=== PATIENT | male | born 1945 | race Caucasian/White ===

== ENCOUNTER 2020-05-21 12:37 | Outpatient (CLI) | payer MEDICARE, OTHER, SELFPAY ==
--- NOTE | ~2020-05-21 | US_ITS ---
EXAMINATION: US carotid duplex BI DATE: 05/21/2020 13:37 INDICATION: Dizziness. Hypercholesterolemia. TECHNIQUE: Grayscale, color Doppler, and pulsed Doppler images of the cervical carotid arteries were obtained. The degree of vessel stenosis is placed in one of the following categories: normal, <50%, 5 0-69%, >=70% but less than near-occlusion, near-occlusion, or total occlusion. Note that percent sten osis relative to normal distal artery lumen diameter is indirectly measured from velocity measurement s as described by Dallas, et al. Radiology 2003; [id number]. COMPARISON: None. FINDINGS: RIGHT: The right common carotid artery (CCA) peak systolic velocity (PSV) is 80.7 cm/s. The right internal c arotid artery (ICA) PSV is 87.9 cm/s. The right ICA end-diastolic velocity (EDV) is 24.5 cm/s. [facility]/CCA PSV ratio is 1.1. Grayscale and color Doppler images yield an estimate of less than 50% d iameter reduction from plaque in the ICA. The external carotid artery (ECA) PSV is 108.1 cm/s. There is antegrade flow in the right vertebral artery. LEFT: The left CCA PSV is 129.9 cm/s. The left ICA PSV is 114.5 cm/s. The left ICA EDV is 14.4 cm/s. The le ft ICA/CCA PSV ratio is 0.9. Grayscale and color Doppler images yield an estimate of less than 50% di ameter reduction from plaque in the ICA. The ECA PSV is 114.5 cm/s. There is antegrade flow in the le ft vertebral artery. IMPRESSION: 1. Less than 50% stenosis in the right internal carotid artery. 2. Less than 50% stenosis in the left internal carotid artery. Reviewed, dictated and finalized at [facility]. Reviewed, dictated and finalized at [facility].
== END 2020-05-21 12:38 | disposition home or self-care (01) ==
LOC: ANHIMG 12:47
PROVIDERS: PCP Family Medicine; Visit Provider Family Medicine
DX: R42 Dizziness and giddiness (principal); E78.00 Pure hypercholesterolemia, unspecified; I65.23 Occlusion and stenosis of bilateral carotid arteries
CPT/HCPCS: 93880

== ENCOUNTER 2021-12-30 12:26 | Emergency (ER) | payer MEDICARE, SELFPAY ==
--- NOTE | ~2021-12-30 | XR_ITS ---
EXAMINATION: XR chest 1V portable 12/30/2021 12:56 INDICATION: Dizziness. Hypertension. PROCEDURE: AP portable chest COMPARISON: 05/10/2018 FINDINGS: The lungs are clear. The cardiomediastinal silhouette is within normal limits. There are no pleural effusions. There is no pneumothorax suspected. IMPRESSION: 1: NO ACUTE CARDIOPULMONARY DISEASE. Reviewed, dictated and finalized at [facility].
--- NOTE | ~2021-12-30 | CT_ITS ---
EXAMINATION: CT brain wo con DATE: 12/30/2021 13:43 INDICATION: Left lower limb numbness. Abnormal gait. TECHNIQUE: Computed tomography (CT) of the head was performed without intravenous contrast. Sagittal and coronal reconstructions were performed. The mA was adjusted according to patient size. Iterative reconstruction technique was employed. The dose-length product was 681.00 mGy-cm. COMPARISON: None FINDINGS: No acute intracranial hemorrhage, acute infarction or abnormal extra axial fluid collection. Symmetri c increased prominence of the subarachnoid spaces overlying the convexities consistent with mild age- appropriate diffuse cerebral volume loss. Ventricles are normal and symmetric. No mass/mass effect. T he orbits, paranasal sinuses and mastoid air cells are normal. 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 IMPRESSION: 1. No acute intracranial process. Reviewed, dictated and finalized at location [facility].
[2021-12-30 12:32] VITALS: BP 172/92; PULSE 68; RESP 16; TEMP 36.2; O2SAT 98
--- NOTE | 2021-12-30 12:36 | ECG_ITS ---
Measurements Intervals [place] Rate: 63 P: 13 MO: 152 QRS: -1 QRSD: 109 T: 15 QT: 417 QTc: 428 Interpretive Statements SINUS RHYTHM POSSIBLE LEFT VENTRICULAR HYPERTROPHY [VOLTAGE CRITERIA PLUS LAE OR QRS WIDENING] OTHERWISE NORMAL TRACING NO PREVIOUS ECG AVAILABLE FOR COMPARISON Electronically Signed On 12-30-2021 16:16:11 CDT by Luc Cleveland M.D.
[2021-12-30 12:51] LABS: Basophils Percent Auto 0.1 % (0.2-1.2); Eosinophils Absolute Auto 0.1 K/mm3 (0-0.3); Eosinophils Percent Auto 1.4 % (0-4.4); Hematocrit 42.1 % (42.0-52.0); Hemoglobin 14.4 g/dL (14.0-18.0); Immature Granulocyte Absolute 0.01 K/mm3 (0.00-0.031); Immature Granulocyte Percent A 0.1 % (0-0.5); Lymphocytes Absolute Auto 1.58 K/mm3 (0.9-3.2); Lymphocytes Percent Auto 22.8 % (18.3-44.2); Mean Corpuscular HGB Conc 34.2 g/dl (32-36); Mean Corpuscular Hemoglobin 31.6 pg (26-34); Mean Corpuscular Volume 92.5 fl (80-100); Mean Platelet Volume 10.1 fl (7.4-10.4); Monocytes Absolute Auto 0.7 K/mm3 (0.1-0.6); Monocytes Percent Auto 9.7 % (2.6-8.5); Neutrophils Absolute Auto 4.6 K/mm3 (1.3-6.7); Neutrophils Percent Auto 65.9 % (45.5-73.1); Platelet Count Result 226 k/mm3 (150-375); Red Blood Count 4.55 M/mm3 (4.6-6.20); Red Cell Distribution Width 12.9 % (11.5-14.5); White Blood Count 6.9 K/mm3 (4.5-10.0)
[2021-12-30 13:01] LABS: Alanine Aminotransferase 21 U/L (4-50); Albumin Level 4.3 g/dL (3.5-5.1); Alkaline Phosphatase 60 U/L (38-126); Anion Gap 3 mmol/L (8-16); Aspartate Amino Transferase 26 U/L (17-59); Bilirubin,Total 0.5 mg/dL (0.2-1.3); Blood Urea Nitrogen 22 mg/dL (9-20); Carbon Dioxide 31 mmol/L (22-30); Chloride 105 mmol/L (98-107); Estimated CRCL calculation 67 ml/min; Estimated Glomerular Filt Rate > 60; Glucose 97 mg/dL (65-110); Potassium 4.2 mmol/L (3.4-5.0); Sodium 139 mmol/L (137-145)
[2021-12-30 13:03] LABS: Prothrombin Time 12.3 Seconds (11.1-14.7)
[2021-12-30 13:04] LABS: Partial Thromboplastin Time 27.9 SECONDS (22.3-36.8)
--- NOTE | 2021-12-30 13:10 | ED.NEUROSD ---
HPI - Neuro Symptoms/Deficit General Chief Complaint: Neuro Symptoms/Deficit Stated Complaint: dizziness, leg numbness Time Seen by Provider: 12/30/21 12:59 Source: patient History of Present Illness HPI Narrative: Patient presents with left lower extremity numbness. Once he went to the stop very well when he woke up he noted numbness to his left leg and is causing some difficulty walking. He is able to make it to the couch rested and his symptoms improved. He continues pain of left knee numbness family looked online and read symptoms may represent a stroke so they came to the ER for evaluation. Patient overall feels well denies any recent fevers, cough, congestion denies any nausea vomiting or diarrhea denies any shortness of breath denies any abdominal pain he denies any urinary symptoms Related Data Home Medications Medication Instructions Recorded Confirmed hydrochlorothiazide 25 mg tablet 12.5 mg PO DAILY tablet 01/18/21 04/27/21 lisinopril 10 mg tablet 20 mg PO DAILY tablet 04/27/21 04/27/21 metoprolol succinate 50 mg 50 mg PO DAILY 04/27/21 04/27/21 tablet,extended release 24 hr Allergies Allergy/AdvReac Type Severity Reaction Status Date / Time No Known Allergies Allergy Unverified 12/30/21 12:35 Review of Systems Review of Systems: CONSTITUTIONAL: Denies fever, chills, or sweats. EYES: Denies visual changes, redness, or discharge. ENT: Denies rhinorrhea, congestion, sore throat, or otalgia. CARDIOVASCULAR: Denies chest pain, palpitations, or edema. RESPIRATORY: Denies cough or dyspnea. GASTROINTESTINAL: Denies abdominal pain, nausea, vomiting, or diarrhea. GENITOURINARY: Denies dysuria or hematuria. SKIN: Denies rash or itching. MUSCULOSKELETAL: Denies back pain, joint pain, or myalgia. NEUROLOGIC: Denies headache, dizziness, or weakness. PSYCHIATRIC: Denies anxiety or depression. All systems reviewed & are unremarkable except as noted in HPI and below PMFSH Past Medical History Medical History HLD (hyperlipidemia) HTN (hypertension) Surgical History Surgical History History of meniscectomy of right knee Status post inguinal hernia repair Family History Family History Father Heart disease Mother Breast cancer Sibling Breast cancer Malignant neoplasm of prostate Social History Social History Smoking status: Never smoker Second hand tobacco smoke exposure: No Alcohol intake: never Drinks per week: 2 Substance use: never Substance use type: does not use Gender identity (if verbalized by the patient): Male Sexual Orientation (if Verbalized by the Patient): Straight or Heterosexual Exam Narrative: GENERAL: Well-appearing, well-nourished, and in no acute distress. HEAD: Normocephalic, atraumatic. EYES: PERRLA and EOMI. ENT: Nares clear, no rhinorrhea or epistaxis. Mucous membranes moist. NECK: Supple. No masses. No JVD CHEST: Clear to auscultation. No respiratory distress. No wheezes rales or rhonchi HEART: Regular rate and rhythm. No murmur heard. Normal peripheral pulses. ABDOMEN: Soft, nontender, nondistended, normal active bowel sounds. EXTREMITIES: Normal range of motion. No edema. SKIN: Warm, dry, no rash. NEURO: Cranial nerves II through XII are intact 5 out of 5 strength in all extremities sensation intact to light touch in all extremities alert and oriented x3. PSYCH: Normal mood and affect. Course Reevaluation(s) Reevaluation #1: Patient is resting comfortably reports improvement in symptoms results and plan reviewed with patient. Patient is comfortable outpatient plan. Date: 12/30/21 Time: 14:40 Vital Signs Vital signs: Vital Signs Temperature 36.2 C L 12/30/21 12:32 Pulse Rate 68 12/30/21 12:32 Respiratory Rate 16 12/30/21 1
[2021-12-30 13:12] LABS: Troponin I < 0.012 ng/mL (0.000-0.034)
[2021-12-30] MEDS: SODIUM CHLORIDE 0.9% IV 500 ML 999 ML IV CONT (13:55)
[2021-12-30 14:26] LABS: Add Urine Microscopic? NO; Appearance Urine Clear (Clear); Bilirubin Urine Negative (Negative); Blood Urine Negative (Negative); Color Urine Yellow (Yellow); Glucose Urine UA Negative (Negative); Ketones Urine Negative (Negative); Leukocyte Esterase Ur Negative LEU/UL (Negative); Nitrate Urine Negative (Negative); Protein Urine Negative (Negative); Urobilinogen Urine Negative mg/dL (<2.0)
[2021-12-30 14:40] VITALS: BP 154/85; PULSE 54; RESP 18; O2SAT 96
== END 2021-12-30 14:45 | disposition home or self-care (01) ==
PROVIDERS: Emergency Medicine; Emergency Provider Emergency Medicine; PCP Family Medicine
DX: R20.2 Paresthesia of skin (principal); E78.5 Hyperlipidemia, unspecified; I10 Essential (primary) hypertension; R94.31 Abnormal electrocardiogram [ECG] [EKG]
CPT/HCPCS: 36415; 70450; 71045; 80053; 81003; 84484; 85025; 85610; 85730; 93005; 96360; 99284; J7040

== ENCOUNTER 2023-12-10 09:42 | Outpatient (CLI) | payer MEDICARE, SELFPAY ==
--- NOTE | ~2023-12-10 | US_ITS ---
EXAMINATION: US aorta [facility] DATE: 12/10/2023 10:41 INDICATION: Abdominal aortic aneurysm screening, history of hypertension, hypercholesterolemia, and i ntermittent claudication TECHNIQUE: Grayscale, color Doppler, and pulsed Doppler images of the aorta and common iliac arteries were obtained. COMPARISON: None. FINDINGS: Maximum vascular dimensions are as follows: Proximal aorta: 3.0 cm Mid aorta: 2.4 cm Distal aorta: 2.1 cm Right common iliac artery: 1.5 cm Left common iliac artery: 1.7 cm There is no evidence of abdominal aortic aneurysm. IMPRESSION: 1. Abdominal aorta upper limits of normal in size. Reviewed, dictated and finalized at location [facility]. EY BRAKEMAN
--- NOTE | ~2023-12-10 | US_ITS ---
EXAMINATION: US carotid duplex BI DATE: 12/10/2023 10:41 INDICATION: Left carotid bruit. TECHNIQUE: Grayscale, color Doppler, and pulsed Doppler images of the cervical carotid arteries were obtained. The degree of vessel stenosis is placed in one of the following categories: normal, <50%, 5 0-69%, >=70% but less than near-occlusion, near-occlusion, or total occlusion. Note that percent sten osis relative to normal distal artery lumen diameter is indirectly measured from velocity measurement s as described by Dallas, et al. Radiology 2003; [id number]:[id number]. COMPARISON: Ultrasound 05/21/2020 FINDINGS: RIGHT: The right common carotid artery (CCA) peak systolic velocity (PSV) is 104 cm/s. The right internal ca rotid artery (ICA) PSV is 83 cm/s. The right ICA end-diastolic velocity (EDV) is 27 cm/s. The right I CA/CCA PSV ratio is 0.8. Grayscale and color Doppler images yield an estimate of <50% diameter reduct ion from plaque in the ICA. There is antegrade flow in the right vertebral artery. LEFT: The left CCA PSV is 160 cm/s. The left ICA PSV is 79 cm/s. The left ICA EDV is 17 cm/s. The left ICA/ CCA PSV ratio is 0.8. Grayscale and color Doppler images yield an estimate of <50% diameter reduction from plaque in the ICA. There is antegrade flow in the left vertebral artery. IMPRESSION: 1. <50% stenosis in the right internal carotid artery. 2. <50% stenosis in the left internal carotid artery. Reviewed, dictated and finalized at location [facility]. [employer] M[employer]INE [employer]
== END 2023-12-10 09:43 | disposition home or self-care (01) ==
PROVIDERS: PCP Family Medicine; Visit Provider Internal Medicine Cardiovascular Disease
DX: I65.23 Occlusion and stenosis of bilateral carotid arteries (principal); R06.89 Other abnormalities of breathing; Z13.6 Encounter for screening for cardiovascular disorders
CPT/HCPCS: 76706; 93880